=== PATIENT | male | born 1980 | race Caucasian/White ===

== ENCOUNTER 2022-12-03 09:59 | Outpatient (CLI) | payer OTHER, SELFPAY | END 2022-12-03 10:00 | disposition home or self-care (01) | LOC: NFLDREF 12-05 08:47 | PROVIDERS: PCP Internal Medicine; Referring Provider Internal Medicine; Visit Provider Internal Medicine | DX: Z00.00 Encounter for general adult medical examination without abnormal findings (principal); Z12.5 Encounter for screening for malignant neoplasm of prostate; Z13.6 Encounter for screening for cardiovascular disorders; R21 Rash and other nonspecific skin eruption | CPT/HCPCS: 80053; 80061; 84153 ==

== ENCOUNTER 2024-10-21 08:56 | Outpatient (CLI) | payer OTHER, SELFPAY | END 2024-10-21 08:57 | disposition home or self-care (01) | PROVIDERS: PCP Internal Medicine; Visit Provider Internal Medicine | DX: Z13.6 Encounter for screening for cardiovascular disorders (principal); Z12.5 Encounter for screening for malignant neoplasm of prostate; Z13.9 Encounter for screening, unspecified | CPT/HCPCS: 80053; 80061; G0103 ==

== ENCOUNTER 2024-10-22 10:28 | Outpatient (CLI) | payer OTHER, SELFPAY | END 2024-10-22 10:29 | disposition home or self-care (01) | PROVIDERS: PCP Internal Medicine; Visit Provider Internal Medicine | DX: N50.89 Other specified disorders of the male genital organs (principal) | CPT/HCPCS: 76870; 93976 ==